=== PATIENT | male | born 1980 | race Caucasian/White ===

== ENCOUNTER 2016-10-06 01:58 | Emergency (ER) | payer SELFPAY ==
[2016-10-06] MEDS ORDERED: Albuterol/Ipratropium 3.0-0.5 MG/3 ML Neb Soln ONE (02:14)
[2016-10-06] MEDS ORDERED: Albuterol/Ipratropium 3.0-0.5 MG/3 ML Neb Soln NEB ONE ×2 (02:17→02:52)
[2016-10-06] MEDS ORDERED: methylPREDNISolone Sodium Succinate 125 MG/2 ML SDV IM ONE (02:17)
--- NOTE | 2016-10-06 02:23 | EDM.PDOC ---
ED HPI GENERAL MEDICAL PROBLEM - General Chief Complaint: Respiratory Problem Stated Complaint: BREATHING DIFFICULTY Time Seen by Provider: 10/06/16 02:04 - History of Present Illness INITIAL COMMENTS - FREE TEXT/NARRATIVE: HISTORY AND PHYSICAL: History of present illness: The patient is a 36 y/o male with a history of asthma who states that he has not had any problems with his asthma until the last few years and presents with progressive shortness of breath. The patient states he has been wheezing and having shortness of breath together. Patient says that all the symptoms started about 4 weeks ago and he was seen in an ER in [place] where he lives about 3 weeks ago. He states that he thought that it started as a sinus infection and then progressed to his lungs and at that time they did chest x-ray and he was put on an inhaler a Medrol Dosepak and a Z-Pepito. He states that he improved after that and still has his inhaler but over the last 3 weeks he has noticed that he is getting more short of breath and wheezing more. He has no chest pain with this no fevers no chills no runny nose or sore throat. Patient has been eating and drinking normally. Patient does not smoke cigarettes and has no cardiac history. The patient states he still continues to live in [place] but travels all over the country for his work and he does have seasonal allergies. He does not take anything for his seasonal allergies. He denies any leg pain or swelling and has no other complaints of pain Review of systems: As per history of present illness and below otherwise all systems reviewed and negative. Past medical history: As per history of present illness and as reviewed below otherwise noncontributory. Surgical history: As per history of present illness and as reviewed below otherwise noncontributory. Social history: No reported history of drug or alcohol abuse. Family history: As per history of present illness and as reviewed below otherwise noncontributory. Physical exam: General: Well-developed overweight male who is speaking clearly in the ED without breathlessness but has a slight audible wheezing heard when speaking to me. His vital signs were noted by me. HEENT: Atraumatic, normocephalic, pupils reactive, negative for conjunctival pallor or scleral icterus, mucous membranes moist, throat clear, neck supple, nontender, trachea midline. Lungs: Wheezing bilaterally on expiratory phase some diminished breath sounds throughout and some coarse breath sounds and some abdominal work of breathing, breath sounds equal bilaterally, chest nontender. Heart: S1S2, regular, negative for clicks, rubs, or JVD. Abdomen: Soft, nondistended, nontender. Negative for masses or hepatosplenomegaly. Negative for costovertebral tenderness. Pelvis: Stable nontender. Genitourinary: Deferred. Rectal: Deferred. Extremities: Atraumatic, negative for cords or calf pain. Neurovascular unremarkable. No pedal edema or leg asymmetry Neuro: Awake, alert, oriented. Cranial nerves II through XII unremarkable. Cerebellum unremarkable. Motor and sensory unremarkable throughout. Exam nonfocal. Diagnostics: Chest x-ray Therapeutics: Solu-Medrol duo neb 0245: After the first 2 and then the patient is more open but is still wheezing and he states he does feel improved. We are currently awaiting the chest x-ray. I discussed with him further workup and he states that when he was in the ER in [place] 3 weeks ago they did blood work and an EKG at that time he was having more discomfort with his breathing. He says he has no chest pain and wants to be more focused on his asthma-like symptomatology. He states his asthma was very bad when he was a child and he was on oral steroids for long periods of time but his attacks seemed to taper off significantly until just recently. 0310: Patient continues to open up but still has wheezing and would like to chart and go home. He has an inhaler to use and I will give him a prednisone taper as well as a Z-Pepito. Impression: Acute asthma exacerbation/asthmatic bronchitis Definitive disposition and diagnosis as appropriate pending reevaluation and review of above. - Related Data Allergies Allergy/AdvReac Type Severity Reaction Status Date / Time Penicillins Allergy Swelling Verified 10/06/16 02:01 Home Meds: Home Meds Albuterol Sulfate [Proair Hfa] 90 mcg IH ASDIRECTED PRN 10/06/16 [History] Past Medical History HEENT History: Reports: None Cardiovascular History: Reports: None Respiratory History: Reports: Asthma Gastrointestinal History: Reports: None Genitourinary History: Reports: None Musculoskeletal History: Reports: None Neurological History: Reports: None Psychiatric History: Reports: None Endocrine/Metabolic History: Reports: None Hematologic History: Reports: None Dermatologic History: Reports: None - Infectious Disease History Infectious Disease History: Reports: None - Past Surgical History Male Surgical History: Reports: None Social & Family History - Family History Family Medical History: Noncontributory - Tobacco Use Smoking Status *Q: Never Smoker - Recreational Drug Use Recreational Drug Use: No ED ROS GENERAL - Review of Systems Review Of Systems: ROS reveals no pertinent complaints other than HPI. ED EXAM, GENERAL - Physical Exam Exam: See Below (See dictation) Course - Vital Signs Last Recorded V/S: Last Vital Signs Temp 36.1 C 10/06/16 02:03 Pulse 104 H 10/06/16 02:50 Resp 20 10/06/16 02:50 BP 152/84 H 10/06/16 02:50 Pulse Ox 95 10/06/16 02:50 - Orders/Labs/Meds Orders: Active Orders 24 hr Category Date Time Status RT Aerosol Therapy [RC] ASDIRECTED Care 10/06/16 02:17 Active RT Aerosol Therapy [RC] ASDIRECTED Care 10/06/16 02:53 Active Chest 2V [CR] Stat Exams 10/06/16 02:18 Taken Meds: Medications Discontinued Medications Generic Name Dose Route Start Last Admin Trade Name Kamran PRN Reason Stop Dose Admin Albuterol/Ipratropium Confirm 10/06/16 02:14 10/06/16 02:19 Duoneb 3.0-0.5 Mg/3 Ml Administered 10/06/16 02:15 Not Given Dose 3 ml .ROUTE .STK-MED ONE Albuterol/Ipratropium 3 ml 10/06/16 02:17 10/06/16 02:19 Duoneb 3.0-0.5 Mg/3 Ml NEB 10/06/16 02:18 3 ml ONETIME ONE Administration Albuterol/Ipratropium 3 ml 10/06/16 02:52 10/06/16 02:56 Duoneb 3.0-0.5 Mg/3 Ml NEB 10/06/16 02:53 3 ml ONETIME ONE Administration Methylprednisolone Sodium Succinate 125 mg 10/06/16 02:17 10/06/16 02:22 Solu-Medrol IM 10/06/16 02:18 125 mg ONETIME ONE Administration Departure - Departure Time of Disposition: 03:13 Disposition: Home, Self-Care 01 Condition: good Clinical Impression: Exacerbation of asthma, Bronchitis - Discharge Information Forms: ED Department Discharge Additional Instructions: The following information is given to patients seen in the emergency department who are being discharged to home. This information is to outline your options for follow-up care. We provide all patients seen in our emergency department with a follow-up referral. The need for follow-up, as well as the timing and circumstances, are variable depending upon the specifics of your emergency department visit. If you don't have a primary care physician on staff, we will provide you with a referral. We always advise you to contact your personal physician following an emergency department visit to inform them of the circumstance of the visit and for follow-up with them and/or the need for any referrals to a consulting specialist. The emergency department will also refer you to a specialist when appropriate. This referral assures that you have the opportunity for followup care with a specialist. All of these measure are taken in an effort to provide you with optimal care, which includes your followup. Under all circumstances we always encourage you to contact your private physician who remains a resource for coordinating your care. When calling for followup care, please make the office aware that this follow-up is from your recent emergency room visit. If for any reason you are refused follow-up, please contact the [facility] emergency department at and ask to speak to the emergency department charge nurse. [facility] [address] [address] Use your inhaler 1-2 puffs be the spacer every 6 hours even if you are not wheezing or feel better. Also used her inhaler as needed. Take prescribed medications for prednisone and Z-Pepito as directed. Push hydration. Please followup with family DrKaylee and return here as needed and as discussed - My Orders Last 24 Hours: My Active Orders 10/06/16 02:17 RT Aerosol Therapy [RC] ASDIRECTED 10/06/16 02:18 Chest 2V [CR] Stat 10/06/16 02:53 RT Aerosol Therapy [RC] ASDIRECTED - Assessment/Plan Last 24 Hours: My Active Orders 10/06/16 02:17 RT Aerosol Therapy [RC] ASDIRECTED 10/06/16 02:18 Chest 2V [CR] Stat 10/06/16 02:53 RT Aerosol Therapy [RC] ASDIRECTED
[2016-10-06 03:58] VITALS: BP 141/78
--- NOTE | 2016-10-06 10:47 | CR ---
EXAM DATE: 10/06/16 PATIENT'S AGE: 36 Patient: CHRIS KEMP Facility: [place], [place] Site . Site : [id number] Study: XRay Chest [id number]/16/2017 2:54:10 AM Ordering Physician: Lokesh De Leon Final Report: INDICATION: sob x 4 wks. was seen 3 wks ago and was told he had bronchitis. no improvement after medications TECHNIQUE: Chest radiograph 2 views on 3 films COMPARISON: None FINDINGS: The study is moderately limited by body habitus. Cardiovascular and mediastinum: The cardiac silhouette is normal in appearance and size. Mediastinum is within normal limits. Lungs and pleural spaces: Both lungs are unremarkable in appearance. No sign of pleural effusion. No pneumothorax is seen. Bones and soft tissues: No significant findings. IMPRESSION: 1. No acute cardiopulmonary disease seen. Dictated by: Bruton Elkins MD @ 10/06/2016 02:55:09 (Electronic Signature) Report Signed by Proxy. ENRICO
== END 2016-10-06 03:20 | disposition home or self-care (01) ==
LOC: EDBD 01:58 → MW.ED 01:58
DX: J45.901 Unspecified asthma with (acute) exacerbation (principal); Z88.0 Allergy status to penicillin
CPT/HCPCS: 71020; 96372; 99285; J2930; 99284